=== PATIENT | female | born 1980 | race Caucasian/White ===

== ENCOUNTER → 2022-02-03 | Outpatient (CLI) | payer BC ==
[2022-02-03 16:42] LABS: HEMOGLOBIN 12.1 gm/dl (12.3-15.3); RED BLOOD COUNT 4.27 M/UL (4.00-5.10); WHITE BLOOD COUNT 9.5 K/UL (4.5-11.0)
[2022-02-03 17:16] LABS: BUN/CREATININE RATIO 17 (0-10)
== END ==
LOC: LAB 15:54
PROVIDERS: Nurse Practitioner
DX: K62.5 Hemorrhage of anus and rectum (principal)
CPT/HCPCS: 36415; 71046; 80048; 85025; 93005